=== PATIENT | female | born 1950 | race African-American/Black ===

== ENCOUNTER 2017-10-11 22:23 | Observation (INO) | payer OTHER ==
[~2017-10-11] VITALS: Ht 154.9 cm; Wt 82.0 kg
[2017-10-11 22:31] VITALS: BP 245/107; PULSE 102; RESP 18; TEMP 98.9; O2SAT 96
[2017-10-11 23:27] LABS: AUTOMATED NEUTROPHIL # 2.7 TH/MM3 (1.8-7.7); BASOPHIL # 0.1 TH/MM3 (0-0.2); BASOPHIL % 0.9 % (0.0-2.0); EOSINOPHIL # 0.1 TH/MM3 (0-0.4); EOSINOPHIL % 1.9 % (0.0-4.0); HEMATOCRIT 37.8 % (35.0-46.0); HEMOGLOBIN 12.6 GM/DL (11.6-15.3); LYMPH % 43.3 % (9.0-44.0); LYMPHOCYTE # 2.7 TH/MM3 (1.0-4.8); MEAN CELL VOLUME 93.1 FL (80.0-100.0); MEAN CORPUSCULAR HGB CONC 33.3 % (32.0-36.0); MONO % 9.1 % (0.0-8.0); MONOCYTE # 0.6 TH/MM3 (0-0.9); NEUT % 44.8 % (16.0-70.0); PLATELET COUNT 285 TH/MM3 (150-450); RED BLOOD COUNT 4.06 MIL/MM3 (4.00-5.30); WHITE BLOOD COUNT 6.1 TH/MM3 (4.0-11.0)
--- NOTE | 2017-10-11 23:28 | PD ---
HPI Chief Complaint: Chest Pain Time Seen by Provider: 23:11 Travel History International Travel<30 days: No Contact w/Intl Traveler<30days: No Traveled to known affect area: No History of Present Illness HPI 67-year-old female with PMH of myasthenia gravis, DM, HTN presents to the ED for evaluation of 5/10 left chest pain, radiating down the arm. Also complains of a accompanying pressure over the central chest, SOB and lightheadedness. Onset approximately 7 PM after dinner tonight. She denies nausea, vomiting, cough, abdominal pain, changes in bowel habits, dysuria. She states that she recently had changes to her metoprolol secondary to reduction of normal hypertension. She never had a cardiac workup. She has never smoked. She endorses family history of NV in a brother and an uncle. She is visiting from [place]. PFSH Past Medical History High Cholesterol: Yes Diabetes: Yes Patient Takes Glucophage: Yes (10/11/2017 2100) Diminished Hearing: No Hypertension: Yes Medical other: Yes (mythis gravis) Tetanus Vaccination: Unknown Influenza Vaccination: No Past Surgical History Eye Surgery: Yes (catract sx b/l) Hysterectomy: Yes (partial) Other Surgery: Yes (thymectomy) Social History Alcohol Use: No Tobacco Use: No Substance Use: No Allergies-Medications (Allergen,Severity, Reaction): Coded Allergies: latex (Verified Allergy, Severe, 10/11/17) hives levofloxacin (Verified Allergy, Severe, 10/11/17) syncope Reported Meds & Prescriptions Reported Meds & Active Scripts Active Metoprolol Succinate ER 24 HR (Metoprolol Succinate) 100 Mg Tab 100 Mg PO DAILY Reported Metformin (Metformin HCl) 500 Mg Tab 500 Mg PO DAILY With a meal Metoprolol Tartrate 50 Mg Tab 50 Mg PO BID Hydralazine (Hydralazine HCl) 100 Mg Tab 25 Mg PO Q6HR Take with meals Losartan-Hydrochlorothiazide 100-25 Mg Tab 1 Tab PO DAILY Imuran (Azathioprine) 50 Mg Tab 50 Mg PO BID Hazardous agent: use appropriate precautions for handling and disposal. Pyridostigmine ER (Pyridostigmine [place]) 180 Mg Tab 120 Mg PO TID Review of Systems Except as stated in HPI: all other systems reviewed are Neg Physical Exam Narrative GENERAL: Well-nourished, well-developed pleasant -Bangladeshi female in no acute distress. SKIN: Focused skin assessment warm/dry. HEAD: Normocephalic. EYES: No scleral icterus. No injection or drainage. NECK: Supple, trachea midline. No JVD or lymphadenopathy. CARDIOVASCULAR: Regular rate and rhythm without gallops, or rubs. Holosystolic murmur noted. RESPIRATORY: Breath sounds clear and equal bilaterally. No accessory muscle use. GASTROINTESTINAL: Abdomen soft, non-tender, nondistended. MUSCULOSKELETAL: No cyanosis, or edema. BACK: Nontender without obvious deformity. No CVA tenderness. Data Data Last Documented VS Vital Signs Date Time Temp Pulse Resp B/P (MAP) Pulse Ox O2 Delivery O2 Flow Rate FiO2 10/12/17 01:30 82 16 181/79 (113) 97 Room Air 10/11/17 22:31 98.9 Orders Orders Electrocardiogram (10/11/17 22:42) Complete Blood Count With Diff (10/11/17 22:42) Basic Metabolic Panel (Bmp) (10/11/17 22:42) Ckmb (Isoenzyme) Profile (10/11/17 22:42) Troponin I (10/11/17 22:42) Chest, Single Ap (10/11/17 22:42) Iv Access Insert/Monitor (10/11/17 22:42) Ecg Monitoring (10/11/17 22:42) Oxygen Administration (10/11/17 22:42) Oximetry (10/11/17 22:42) Ct Brain W/O Iv Contrast(Rout) (10/11/17 ) Aspirin (Aspirin) (10/11/17 23:30) Hydralazine Inj (Apresoline Inj) (10/11/17 23:45) Nitroglycerin 2% Oint (Nitroglycerin 2% (10/12/17 00:00) Labetalol Inj (Trandate Inj) (10/12/17 00:30) CKMB (10/12/17 00:27) CKMB% (10/12/17 00:27) Admit Order (Ed Use Only) (10/12/17 02:17) Labs Laboratory Tests Test 10/11/17 23:19 10/12/17 00:27 White Blood Count 6.1 TH/MM3 Red Blood Count 4.06 MIL/MM3 Hemoglobin 12.6 GM/DL Hematocrit 37.8 % Mean Corpuscular Volume 93.1 FL Mean Corpuscular Hemoglobin 31.0 PG Mean Corpuscular Hemoglobin Concent 33.3 % Red Cell Distribution Width 16.0 % Platelet Count 285 TH/MM3 Mean Platelet Volume 9.0 FL Neutrophils (%) (Auto) 44.8 % Lymphocytes (%) (Auto) 43.3 % Monocytes (%) (Auto) 9.1 % Eosinophils (%) (Auto) 1.9 % Basophils (%) (Auto) 0.9 % Neutrophils # (Auto) 2.7 TH/MM3 Lymphocytes # (Auto) 2.7 TH/MM3 Monocytes # (Auto) 0.6 TH/MM3 Eosinophils # (Auto) 0.1 TH/MM3 Basophils # (Auto) 0.1 TH/MM3 CBC Comment AUTO DIFF Differential Comment AUTO DIFF CONFIRMED Platelet Estimate NORMAL Platelet Morphology Comment NORMAL Blood Urea Nitrogen 30 MG/DL Creatinine 1.42 MG/DL Random Glucose 227 MG/DL Calcium Level 9.6 MG/DL Sodium Level 137 MEQ/L Potassium Level 3.6 MEQ/L Chloride Level 102 MEQ/L Carbon Dioxide Level 27.2 MEQ/L Anion Gap 8 MEQ/L Estimat Glomerular Filtration Rate 45 ML/MIN Total Creatine Kinase 125 U/L Creatine Kinase MB 0.8 NG/ML Troponin I LESS THAN 0.02 NG/ML MDM Medical Decision Making Medical Screen Exam Complete: Yes Emergency Medical Condition: Yes Differential Diagnosis Chest pain versus angina versus ACS versus hypertensive urgency versus other Narrative Course 67-year-old female with PMH of myasthenia gravis, DM, HTN presents to the ED for evaluation of 5/10 left chest pain, radiating down the arm. Also complains of a accompanying pressure over the central chest, SOB and lightheadedness. Onset approximately 7 PM after dinner tonight. She states that she recently had changes to her metoprolol dose but takes multiple BP meds. She never had a cardiac workup. She has never smoked. She endorses family history of NV in a brother and an uncle. She is visiting from [place]. Heart rate 102, BP 245/107 on presentation. On exam this is a pleasant obese -Bangl[place]hi female in no acute distress. There is a holosystolic murmur heard but the exam is otherwise unremarkable. IV was established. Patient was administered 10 mg hydralazine IV. Cardiac workup initiated. I discussed possible admission to the [facility], even if the workup is completely negative today with the patient who is agreeable. The patient is signed out to Dr. Amezquita at end of shift. Please see her note for disposition. Scripts Metoprolol Succinate ER 24 HR (Metoprolol Succinate ER 24 HR) 100 Mg Tab 100 MG PO DAILY for Blood Pressure Management, #30 TAB 0 Refills Prov: Ezekiel Schuster 10/12/17 Kimmie Nance Oct 11, 2017 23:28
[2017-10-11 23:30] VITALS: BP 245/110; PULSE 90; RESP 16; O2SAT 100
[2017-10-11] MEDS ORDERED: ASPIRIN 325 MG TAB PO ONE (23:30)
[2017-10-11] MEDS ORDERED: hydrALAZINE HCL 20 MG/ML VIAL IV PUSH ONE (23:45)
--- NOTE | 2017-10-11 23:47 | PD ---
Data Data Last Documented VS Vital Signs Date Time Temp Pulse Resp B/P (MAP) Pulse Ox O2 Delivery O2 Flow Rate FiO2 10/12/17 00:40 80 16 192/89 (123) 98 Room Air 10/11/17 22:31 98.9 Orders Orders Electrocardiogram (10/11/17 22:42) Complete Blood Count With Diff (10/11/17 22:42) Basic Metabolic Panel (Bmp) (10/11/17 22:42) Ckmb (Isoenzyme) Profile (10/11/17 22:42) Troponin I (10/11/17 22:42) Chest, Single Ap (10/11/17 22:42) Iv Access Insert/Monitor (10/11/17 22:42) Ecg Monitoring (10/11/17 22:42) Oxygen Administration (10/11/17 22:42) Oximetry (10/11/17 22:42) Ct Brain W/O Iv Contrast(Rout) (10/11/17 ) Aspirin (Aspirin) (10/11/17 23:30) Hydralazine Inj (Apresoline Inj) (10/11/17 23:45) Nitroglycerin 2% Oint (Nitroglycerin 2% (10/12/17 00:00) Labetalol Inj (Trandate Inj) (10/12/17 00:30) CKMB (10/12/17 00:27) CKMB% (10/12/17 00:27) Admit Order (Ed Use Only) (10/12/17 02:17) Activity Bed Rest With Brp (10/12/17 02:18) Vital Signs (Adult) Q4H (10/12/17 02:18) Cardiac Rhythm .As Directed (10/12/17 02:18) Notify Dr: Other .PRN (10/12/17 02:18) Notify Dr. Parameters (10/12/17 02:18) Resp Oxygen Nasal Cannula (10/12/17 ) Diet Npo (10/12/17 Breakfast) Ckmb (Isoenzyme) Profile (10/12/17 03:30) Ckmb (Isoenzyme) Profile (10/12/17 06:30) Troponin I (10/12/17 03:30) Troponin I (10/12/17 06:30) Electrocardiogram (10/12/17 03:30) Electrocardiogram (10/12/17 06:30) ^ Obtain (10/12/17 02:18) Sodium Chloride 0.9% Flush (Ns Flush) (10/12/17 02:30) Sodium Chloride 0.9% Flush (Ns Flush) (10/12/17 09:00) Acetaminophen (Tylenol) (10/12/17 02:30) Ondansetron Inj (Zofran Inj) (10/12/17 02:30) Lisinopril (Prinivil) (10/12/17 09:00) Nitroglycerin 2% Oint (Nitroglycerin 2% (10/12/17 06:00) Aspirin (Aspirin) (10/12/17 09:00) [employer] Operator / Telemetry MANAV.Q8H (10/12/17 02:18) Labs Laboratory Tests Test 10/11/17 23:19 10/12/17 00:27 White Blood Count 6.1 TH/MM3 Red Blood Count 4.06 MIL/MM3 Hemoglobin 12.6 GM/DL Hematocrit 37.8 % Mean Corpuscular Volume 93.1 FL Mean Corpuscular Hemoglobin 31.0 PG Mean Corpuscular Hemoglobin Concent 33.3 % Red Cell Distribution Width 16.0 % Platelet Count 285 TH/MM3 Mean Platelet Volume 9.0 FL Neutrophils (%) (Auto) 44.8 % Lymphocytes (%) (Auto) 43.3 % Monocytes (%) (Auto) 9.1 % Eosinophils (%) (Auto) 1.9 % Basophils (%) (Auto) 0.9 % Neutrophils # (Auto) 2.7 TH/MM3 Lymphocytes # (Auto) 2.7 TH/MM3 Monocytes # (Auto) 0.6 TH/MM3 Eosinophils # (Auto) 0.1 TH/MM3 Basophils # (Auto) 0.1 TH/MM3 CBC Comment AUTO DIFF Differential Comment AUTO DIFF CONFIRMED Platelet Estimate NORMAL Platelet Morphology Comment NORMAL Blood Urea Nitrogen 30 MG/DL Creatinine 1.42 MG/DL Random Glucose 227 MG/DL Calcium Level 9.6 MG/DL Sodium Level 137 MEQ/L Potassium Level 3.6 MEQ/L Chloride Level 102 MEQ/L Carbon Dioxide Level 27.2 MEQ/L Anion Gap 8 MEQ/L Estimat Glomerular Filtration Rate 45 ML/MIN Total Creatine Kinase 125 U/L Creatine Kinase MB 0.8 NG/ML Troponin I LESS THAN 0.02 NG/ML [facility] Medical Record Reviewed: Yes Supervised Visit with YOVANY: No Interpretation(s) Last Impressions Chest X-Ray 10/11/17 2242 Signed Impressions: Service Date/Time: Wednesday, October 11, 2017 23:55 - CONCLUSION: No acute cardiopulmonary abnormality is identified. Keith Reynolds MD Head CT 10/11/17 0000 Signed Impressions: Service Date/Time: Wednesday, October 11, 2017 23:51 - CONCLUSION: No acute intracranial abnormality is identified. Keith Reynolds MD Narrative Course During the course of the patient's emergency department visit, the patient's history, examination, and differential diagnosis were reviewed with the patient. The patient was placed on a cardiac technologist with oximetry and frequent blood pressure monitoring. The patient had IV access obtained and blood work sent for analysis. The patient's case was checked out to me by Nadya. Please see her complete history and physical. The patient's case was checked out to me at the conclusion of her shift. The patient presented with an episode of chest pain, dizziness. The patient has no prior history of cardiac disease. The patient does have a history of difficult to control high blood pressure. The patient arrives hypertensive. The patient had an EKG done on arrival that shows a sinus rhythm with a sinus arrhythmia heart rate of 89, QRS duration is 85 ms, QTC 416 ms. Without any acute ST segment elevation. T waves are inverted in V6. The patient was initially provided hydralazine 10 mg IV, aspirin 325 mg p.o. 1 the patient continued to have hypertension. The patient was chest pain-free. The patient was given nitroglycerin 1 inch the chest wall. The patient was given labetalol 10 mg IV. The patient's laboratory studies were reviewed and remarkable for a CBC that is unremarkable, BMP is remarkable for a BUN of 30, creatinine 1.42, glucose 227 with normal initial set of cardiac enzymes. Radiology studies were reviewed and remarkable for chest x-ray that showed no evidence of acute cardiopulmonary disease. No widened mediastinum. The patient will be admitted to the chest pain center for a rule out serial cardiac enzyme protocol followed by stress testing. The patient's results were discussed with the patient, including the plan of care. I explained that further testing and/ or monitoring is indicated based on the patient's history, examination, and/ or laboratory findings. Therefore, I recommended admission for additional evaluation. The patient expressed understanding and was agreeable with this plan. The patient was admitted to the hospital in stable condition and sent to a bed under the care of the chest pain center. Diagnosis Primary Impression: Chest pain, rule out acute myocardial infarction Additional Impression: Hypertension Qualified Codes: I10 - Essential (primary) hypertension Admitting Information Admitting Physician Requests: Observation Sharda Amezquita MD Oct 11, 2017 23:47
[2017-10-12] VITALS (18 sets, daily range): BP systolic 150–209; BP diastolic 64–95; PULSE 80–113; RESP 16–18; TEMP 96.7–98.4; O2SAT 94–98
[2017-10-12] MEDS ORDERED: NITROGLYCERIN 2% OINT 1 GM PACKET TOPICAL ONE
--- NOTE | 2017-10-12 00:08 | RADRPT ---
EXAM DATE/TIME: 10/11/2017 23:51 [facility] COMPARISON: No previous studies available for comparison. INDICATIONS : Headaches with high blood pressure and chest pain. RADIATION DOSE: 39.13 CTDIvol (mGy) MEDICAL HISTORY : Hypertension. Diabetes mellitus type 2. SURGICAL HISTORY : Hysterectomy. ENCOUNTER: Initial ACUITY: 1 day PAIN SCALE: 5/10 LOCATION: cranial TECHNIQUE: Multiple contiguous axial images were obtained of the head. Using automated exposure control and adj ustment of the mA and/or kV according to patient size, radiation dose was kept as low as reasonably a chievable to obtain optimal diagnostic quality images. DICOM format image data is available electro nically for review and comparison. FINDINGS: CEREBRUM: There is mild generalized atrophy. Ventricles are normal. No evidence of midline shift, mass lesion, hemorrhage or acute infarction. No extra-axial fluid collections are seen. POSTERIOR FOSSA: The cerebellum and brainstem demonstrate no acute finding. There is severe atherosclerotic calcificat ion of the distal left vertebral artery. The 4th ventricle is midline. The cerebellopontine angle i s unremarkable. EXTRACRANIAL: Visualized sinuses are clear. SKULL: The calvaria is intact. No evidence of skull fracture. CONCLUSION: No acute intracranial abnormality is identified. Keith Reynolds MD on October 12, 2017 at 0:04 Board Certified Radiologist. This report was verified electronically.
--- NOTE | 2017-10-12 00:11 | RADRPT ---
EXAM DATE/TIME: 10/11/2017 23:55 [facility] COMPARISON: No previous studies available for comparison. INDICATIONS : Chest pain. MEDICAL HISTORY : None. SURGICAL HISTORY : CABG. ENCOUNTER: Initial ACUITY: 1 day PAIN SCORE: 08/18 LOCATION: Bilateral chest FINDINGS: Portable AP view of the chest demonstrates a normal-sized cardiac silhouette in this patient post med wendy sternotomy and CABG. Clips overlie the mediastinum. There is calcification of the mitral annulus. EKG lines overlie the patient. No pleural effusion, airspace consolidation, or pneumothorax is ident ified. The bones and soft tissues demonstrate no acute finding. CONCLUSION: No acute cardiopulmonary abnormality is identified. Keith Reynolds MD on October 12, 2017 at 0:08 Board Certified Radiologist. This report was verified electronically.
[2017-10-12] MEDS ORDERED: LOSA100T2 PO (00:26)
[2017-10-12] MEDS ORDERED: METO50TA PO (00:26)
[2017-10-12] MEDS ORDERED: METF500T PO (00:26)
[2017-10-12] MEDS ORDERED: IMUR50TA5 PO (00:26)
[2017-10-12] MEDS ORDERED: METO100T PO (00:26)
[2017-10-12] MEDS ORDERED: PYRI1TAB8 PO (00:26)
[2017-10-12] MEDS ORDERED: HYDR-3801 PO (00:26)
[2017-10-12] MEDS ORDERED: LABETALOL HCL 100 MG/20 ML VIAL IV PUSH ONE (00:30)
[2017-10-12 01:43] LABS: BICARBONATE 27.2 MEQ/L (21.0-32.0); BLOOD UREA NITROGEN 30 MG/DL (7-18); CALCIUM 9.6 MG/DL (8.5-10.1); CHLORIDE 102 MEQ/L (98-107); CREATININE 1.42 MG/DL (0.50-1.00); GLOMERULAR FILTRATION RATE 45 ML/MIN (>89); GLUCOSE,RANDOM 227 MG/DL (74-106); SODIUM (NA) 137 MEQ/L (136-145)
[2017-10-12 01:46] LABS: TROPONIN I LESS THAN 0.02 NG/ML (0.02-0.05)
[2017-10-12] MEDS ORDERED: ONDANSETRON HCL 4 MG/2 ML VIAL IV PUSH PRN (02:30)
[2017-10-12] MEDS ORDERED: ACETAMINOPHEN 500 MG CPLT PO PRN (02:30)
[2017-10-12] MEDS ORDERED: SODIUM CHLORIDE 0.9% FLUSH 10 ML FLUSH IV FLUSH PRN (02:30)
[2017-10-12 04:16] LABS: TROPONIN I 0.02 NG/ML (0.02-0.05)
[2017-10-12] MEDS: NITROGLYCERIN 2% OINT 1 GM PACKET TOP SCH ×3 (05:58→17:12)
[2017-10-12 07:44] LABS: TROPONIN I LESS THAN 0.02 NG/ML (0.02-0.05)
[2017-10-12] MEDS ORDERED: LISINOPRIL 10 MG TAB PO SCH (09:00)
[2017-10-12] MEDS ORDERED: ASPIRIN 325 MG TAB PO SCH (09:00)
[2017-10-12] MEDS ORDERED: METO1TAB43 PO (09:07)
[2017-10-12] MEDS: cloNIDine HCL 0.1 MG TAB PO PRN ×4 (09:30→20:33)
[2017-10-12] MEDS ORDERED: HYDROCHLOROTHIAZIDE 25 MG TAB PO SCH (10:00)
[2017-10-12] MEDS ORDERED: LOSARTAN 50 MG TAB PO SCH (10:00)
[2017-10-12] MEDS: SODIUM CHLORIDE 0.9% FLUSH 10 ML FLUSH IV FLUSH SCH ×2 (10:08→20:25)
[2017-10-12] MEDS: hydrALAZINE HCL 25 MG TAB PO SCH ×2 (11:11→17:12)
[2017-10-12] MEDS ORDERED: DEXTROSE 50% IN WATER 50 ML VIAL(D50) IV PUSH PRN (11:45)
[2017-10-12] MEDS ORDERED: GLUCAGON 1 MG/ML VIAL OTHER PRN (11:45)
[2017-10-12] MEDS: INSULIN ASPART SUPPLEMENTAL SCALE SQ SCH ×3 (12:00→22:05)
[2017-10-12] MEDS ORDERED: hydrALAZINE HCL 25 MG TAB PO SCH (12:00)
--- NOTE | 2017-10-12 12:30 | HHI.HP ---
HPI Primary Care Physician Unknown Chief Complaint Chest pain History of Present Illness This is a 67-year-old female that presents to ED with complaint of chest discomfort she has history of myasthenia gravis, diabetes, hypertension. Complains of a central and left-sided chest pressure that can radiate down her left arm. Began last evening little after dinner. Denies shortness breath, nausea, or diaphoresis. Cannot recall any recent cardiac workup. Found nothing to worsen or improve her symptoms when she had them. Also states her blood pressure was high when she came in. States her medications were changed somewhat recently. She was taken off of her 50 mg a.m. dose of metoprolol, continues metoprolol succinate 100 mg in evening, losartan, and hydralazine 25 mg 3 times a day. Currently no chest discomfort. Review of Systems General: Patient denies fevers, chills, and recent travel HEENT: Patient denies headache, sore throat, difficulty swallowing. Cardiovascular: Has the chest discomfort as mentioned above. Denies sensation of heart beating rapidly or irregularly. No syncope. Denies diaphoresis. Respiratory: Denies shortness of breath or inspirational chest discomfort. Denies coughing wheezing or hemoptysis. GI: Patient denies nausea, vomiting, diarrhea, abdominal pain, bloody stools. Musculoskeletal: Patient denies joint pain or edema. Denies calf pain or edema. Neurovascular: Patient denies numbness, tingling, weakness in extremities. Denies headache. Endocrine: Denies polyuria and polydipsia. Hematologic: Denies easy bruising. Skin: Denies rash or itching. Past Family Social History Allergies: Coded Allergies: latex (Verified Allergy, Severe, 10/11/17) hives levofloxacin (Verified Allergy, Severe, 10/11/17) syncope Past Medical History Myasthenia gravis, hypertension, diabetes. Denies hyperlipidemia and known CAD. Non-smoker. Past Surgical History Thymectomy, partial hysterectomy. Cataracts. Reported Medications Reported Meds & Active Scripts Active Metoprolol Succinate ER 24 HR (Metoprolol Succinate) 100 Mg Tab 100 Mg PO DAILY Reported Metformin (Metformin HCl) 500 Mg Tab 500 Mg PO DAILY With a meal Metoprolol Tartrate 50 Mg Tab 50 Mg PO BID Hydralazine (Hydralazine HCl) 100 Mg Tab 25 Mg PO Q6HR Take with meals Losartan-Hydrochlorothiazide 100-25 Mg Tab 1 Tab PO DAILY Imuran (Azathioprine) 50 Mg Tab 50 Mg PO BID Hazardous agent: use appropriate precautions for handling and disposal. Pyridostigmine ER (Pyridostigmine [place]) 180 Mg Tab 120 Mg PO TID Active Ordered Medications Current Medications Medications (Trade) Dose Ordered Sig/Leigh Route Start Time Stop Time Status Last Admin (NS Flush) 2 ml UNSCH PRN IV FLUSH 10/12/17 02:30 (NS Flush) 2 ml BID IV FLUSH 10/12/17 09:00 10/12/17 10:08 (Tylenol) 500 mg Q4H PRN PO 10/12/17 02:30 (Zofran Inj) 4 mg Q6H PRN IV PUSH 10/12/17 02:30 (Nitroglycerin 2% Oint) 1 inch Q6HR TOP 10/12/17 06:00 10/12/17 05:58 (Aspirin) 325 mg DAILY PO 10/12/17 09:00 10/12/17 10:00 (Catapres) 0.1 mg Q4H PRN PO 10/12/17 08:15 (Cozaar) 100 mg DAILY PO 10/12/17 10:00 10/12/17 10:00 (Hydrodiuril) 25 mg DAILY PO 10/12/17 10:00 10/12/17 10:00 (Apresoline) 25 mg Q6HR PO 10/12/17 12:00 10/12/17 11:11 (D50w (Vial) Inj) 50 ml UNSCH PRN IV PUSH 10/12/17 11:45 (Glucagon Inj) 1 mg UNSCH PRN OTHER 10/12/17 11:45 (NovoLOG SUPPLEMENTAL SCALE) 1 ACHS SLIDING SCALE SQ 10/12/17 12:00 Family History There is family history of CAD with her brother having an CT. Social History Non-smoker. Denies alcohol or illicit drug use. Physical Exam Vital Signs Vital Signs Date Time Temp Pulse Resp B/P (MAP) Pulse Ox O2 Delivery O2 Flow Rate FiO2 10/12/17 10:49 88 188/87 (120) 10/12/17 10:08 88 16 188/88 (121) 97 Room Air 10/12/17 08:56 105 16 208/91 (130) 98 Room Air 10/12/17 07:54 82 16 172/80 (110) 98 Room Air 10/12/17 07:53 82 16 172/80 (110) 98 Room Air 10/12/17 04:33 91 16 181/91 (121) 94 Room Air 10/12/17 02:31 82 16 169/76 (107) 96 Room Air 10/12/17 01:30 82 16 181/79 (113) 97 Room Air 10/12/17 00:40 80 16 192/89 (123) 98 Room Air 10/11/17 23:30 90 16 245/110 (155) 100 Room Air 10/11/17 22:31 98.9 102 18 245/107 (153) 96 Physical Exam GENERAL: This is a well-nourished, well-developed patient, in no apparent distress. Patient speaks in clear complete sentences. Patient is pleasant. HEENT: Head is atraumatic and normocephalic. Neck is supple without lymphadenopathy and trachea is midline. No JVD or carotid bruits. CARDIOVASCULAR: Grade 2 systolic murmur left sternal border. Regular rate and rhythm without gallops or rubs. RESPIRATORY: Clear to auscultation. Breath sounds equal bilaterally. No wheezes , rales, or rhonchi. Chest wall is nontender. No use of accessory muscles. GASTROINTESTINAL: Abdomen is nontender, nondistended. Abdomen soft. No obvious pulsatile mass or bruit. No CVA tenderness. Strong femoral pulses bilaterally. Normal bowel sounds in all quadrants. MUSCULOSKELETAL: Patient is moving upper and lower extremities freely. No calf tenderness or edema, no Homans sign. Strong pulses in upper and lower extremities. NEUROLOGICAL: Patient is alert and oriented. Cranial nerves 2-12 are grossly intact. No focal deficits and speech is clear. SKIN: No rash and turgor is normal. Laboratory Laboratory Tests Test 10/11/17 23:19 10/12/17 00:27 10/12/17 03:29 10/12/17 06:20 White Blood Count 6.1 Red Blood Count 4.06 Hemoglobin 12.6 Hematocrit 37.8 Mean Corpuscular Volume 93.1 Mean Corpuscular Hemoglobin 31.0 Mean Corpuscular Hemoglobin Concent 33.3 Red Cell Distribution Width 16.0 Platelet Count 285 Mean Platelet Volume 9.0 Neutrophils (%) (Auto) 44.8 Lymphocytes (%) (Auto) 43.3 Monocytes (%) (Auto) 9.1 Eosinophils (%) (Auto) 1.9 Basophils (%) (Auto) 0.9 Neutrophils # (Auto) 2.7 Lymphocytes # (Auto) 2.7 Monocytes # (Auto) 0.6 Eosinophils # (Auto) 0.1 Basophils # (Auto) 0.1 CBC Comment AUTO DIFF Differential Comment AUTO DIFF CONFIRMED Platelet Estimate NORMAL Platelet Morphology Comment NORMAL Blood Urea Nitrogen 30 Creatinine 1.42 Random Glucose 227 Calcium Level 9.6 Sodium Level 137 Potassium Level 3.6 Chloride Level 102 Carbon Dioxide Level 27.2 Anion Gap 8 Estimat Glomerular Filtration Rate 45 Total Creatine Kinase 125 120 114 Creatine Kinase MB 0.8 0.8 0.9 Troponin I LESS THAN 0.02 0.02 LESS THAN 0.02 Result Diagram: 10/11/17 2319 10/12/17 0027 Imaging Last 48 hours Impressions Chest X-Ray 10/11/17 2242 Signed Impressions: Service Date/Time: Wednesday, October 11, 2017 23:55 - CONCLUSION: No acute cardiopulmonary abnormality is identified. Keith Reynolds MD Head CT 10/11/17 0000 Signed Impressions: Service Date/Time: Wednesday, October 11, 2017 23:51 - CONCLUSION: No acute intracranial abnormality is identified. Keith Reynolds MD Course EKGs are sinus rhythm without significant ST segment depressions or elevations. Caprini VTE Risk Assessment Caprini VTE Risk Assessment: Mod/High Risk (score >= 2) Caprini Risk Assessment Model Point Value = 1 Point Value = 2 Point Value = 3 Point Value = 5 Age 41-60 Minor surgery BMI > 25 kg/m2 Swollen legs Varicose veins or History of unexplained or recurrent spontaneous Oral contraceptives or hormone replacement Sepsis (< 1 month) Serious lung disease, including pneumonia (< 1 month) Abnormal pulmonary function Acute myocardial infarction Congestive heart failure (< 1 month) History of inflammatory bowel disease Medical patient at bed rest Age 61-74 Arthroscopic surgery Major open surgery (> 45 min) Laparoscopic surgery (> 45 min) Malignancy Confined to bed (> 72 hours) Immobilizing plaster cast Central venous access Age >= 75 History of VTE Family history of VTE Factor V Leiden Prothrombin [id number] Lupus anticoagulant Anticardiolipin antibodies Elevated serum homocysteine Heparin-induced thrombocytopenia Other congenital or acquired thrombophilia Stroke (< 1 month) Elective arthroplasty Hip, pelvis, or leg fracture Acute spinal cord injury (< 1 month) Prophylaxis Regimen Total Risk Factor Score Risk Level Prophylaxis Regimen 0-1 Low Early ambulation 2 Moderate Order ONE of the following: *Sequential Compression Device (SCD) *Heparin 5000 units SQ BID 3-4 Higher Order ONE of the following medications: *Heparin 5000 units SQ TID *Enoxaparin/Lovenox 40 mg SQ daily (WT < 150 kg, CrCl > 30 mL/min) *Enoxaparin/Lovenox 30 mg SQ daily (WT < 150 kg, CrCl > 10-29 mL/min) *Enoxaparin/Lovenox 30 mg SQ BID (WT < 150 kg, CrCl > 30 mL/min) AND/OR *Sequential Compression Device (SCD) 5 or more Highest Order ONE of the following medications: *Heparin 5000 units SQ TID (Preferred with Epidurals) *Enoxaparin/Lovenox 40 mg SQ daily (WT < 150 kg, CrCl > 30 mL/min) *Enoxaparin/Lovenox 30 mg SQ daily (WT < 150 kg, CrCl > 10-29 mL/min) *Enoxaparin/Lovenox 30 mg SQ BID (WT < 150 kg, CrCl > 30 mL/min) AND *Sequential Compression Device (SCD) Assessment and Plan Assessment and Plan * Chest pain: Patient has had serial cardiac enzymes and EKGs for ruling out purposes. She has been seen by Dr. Dickerson of cardiology in the chest pain center and will undergo a Lexiscan. She will be discharged home for stress test is nonischemic with instructions to follow-up with PCP. Return to ED for interval issues. * Hypertension: We will increase her hydralazine to 25 mg every 6 hours. Continue her metoprolol succinate and losartan/HCT. * Diabetes: Patient will have sliding scale insulin coverage while in chest pain center. Follow diabetic diet. Resume medication at discharge. She should discuss being on a statin medication with history of diabetes. Patient is stable at this time. She is agreeable to this plan. Ezekiel Schuster Oct 12, 2017 12:30
[2017-10-12] MEDS ORDERED: REGADENOSON INJ 0.4 MG/5 ML SYR ONE (14:21)
--- NOTE | 2017-10-12 15:35 | RADRPT ---
EXAM DATE/TIME: 10/12/2017 14:04 [facility] COMPARISON: No previous studies available for comparison. INDICATIONS : Left sided chest pain. Angina. DOSE: 26.1 mCi Tc99m Myoview at stress. 8.1 mCi Tc99m Myoview at rest. 0.4 mg Lexiscan STRESS SYMPTOMS: Flushed. EJECTION FRACTION: 56% MEDICAL HISTORY : Diabetes mellitus type 2. Hypertension. SURGICAL HISTORY : Hysterectomy. Thymectomy. ENCOUNTER: Initial ACUITY: 1 day PAIN SCALE: 4/10 LOCATION: Left chest TECHNIQUE: The patient underwent pharmacologic stress with infusion of prescribed dose. Continuous ECG tracing was monitored during stress. Gated SPECT imaging was performed after stress and conventional SPECT i maging was performed at rest. The examination was performed on a SPECT/CT scanner, both attenuation and non-corrected datasets were reviewed. FINDINGS: DISTRIBUTION: The maximum perfused segment at stress is in the septal wall. PERFUSION STUDY: There is 10-20% redistribution involving the anterior wall between the stress and rest images. No are a greater than 20% the appreciated. GATED STUDY: There is intact wall motion and thickening without hypokinetic or dyskinetic segments. CONCLUSION: No significant reversible defects observed to suggest acute ischemia. RISK CATEGORY: low Oswaldo Bonner Jr., MD on October 12, 2017 at 15:28 Board Certified Radiologist. This report was verified electronically.
--- NOTE | 2017-10-12 15:53 | TR ---
Date Performed: 10/12/2017 Time Performed: 14:32:30 DOCTOR: Keisha Dickerson DRUG LIST: CLINICAL HISTORY: REASON FOR TEST: REASON FOR ENDING: OBSERVATION: CONCLUSION: Lexiscan stress test was performed under standard four minute protocol. Radionuclid e was injected one minute prior to ending the test. No electrocardiographic abormalities were present to suggest ischemia. Nuclear imaging and interpretation are pending. COMMENTS:
--- NOTE | 2017-10-12 16:00 | EKG ---
Date Performed: 10/12/2017 Time Performed: 06:17:21 PTAGE: 67 years EKG: Sinus rhythm POSSIBLE LEFT ATRIAL ENLARGEMENT POSSIBLE LEFT VENTRICULAR HYPERTROPHY MODERATE T-WAVE ABNORMALITY, CONSIDER LATERAL ISCHEMIA ABNORMAL ECG Since PREVIOUS TRACING , no significant change noted PREVIOUS TRACIN10/12/2017 03.23 DOCTOR: Keisha Dickerson Interpretating Date/Time 10/12/2017 15:59:20
--- NOTE | 2017-10-12 16:01 | EKG ---
Date Performed: 10/12/2017 Time Performed: 03:23:24 PTAGE: 67 years EKG: Sinus rhythm POSSIBLE LEFT ATRIAL ENLARGEMENT LEFT VENTRICULAR HYPERTROPHY AND ST-T CHANGE ABNORMAL ECG Since PREVIOUS TRACING , no significant change noted PREVIOUS TRACIN10/11/2017 23.09 DOCTOR: Keisha Dickerson Interpretating Date/Time 10/12/2017 16:01:01
--- NOTE | 2017-10-12 16:02 | EKG ---
Date Performed: 10/11/2017 Time Performed: 23:09:10 PTAGE: 67 years EKG: Sinus rhythm WITH SINUS ARRHYTHMIA POSSIBLE LEFT ATRIAL ENLARGEMENT LEFT VENTRICULAR HYPERTROPHY AND ST-T CHANGE ABNORMAL ECG NO PREVIOUS TRACING DOCTOR: Keisha Dickerson Interpretating Date/Time 10/12/2017 16:01:37
[2017-10-12] MEDS ORDERED: amLODIPine BESYLATE 5 MG TAB PO SCH (16:15)
[2017-10-12] MEDS ORDERED: cloNIDine HCL 0.2 MG TAB PO ONE (16:15)
[2017-10-12] MEDS ORDERED: CLON.2 PO (16:18)
--- NOTE | 2017-10-12 16:19 | HHI.DCPOC ---
Discharge Care Plan Diagnosis: (1) Chest pain (2) DM (diabetes mellitus) (3) Hypertension Goals to Promote Your Health DISCUSS TAKING CHOLESTEROL MEDICATIONS WHEN YOU FOLLOW UP WITH YOUR PHYSICIAN. * To prevent worsening of your condition and complications * To maintain your health at the optimal level Directions to Meet Your Goals Take your medications as prescribed Follow your dietary instruction Follow activity as directed Keep your appointments as scheduled Take your immunizations and boosters as scheduled If your symptoms worsen call your PCP, if no PCP go to Urgent Care Center or Emergency Room Smoking is Dangerous to Your Health. Avoid second hand smoke Call the 24-hour hour crisis hotline for domestic abuse at Ezekiel Schuster Oct 12, 2017 16:19
[2017-10-12] MEDS ORDERED: TIMO0.5S30 EACH EYE (18:17)
[2017-10-12] MEDS ORDERED: TRAV0.00 EACH EYE (18:18)
[2017-10-12] MEDS ORDERED: ALPH0.1S EACH EYE (18:19)
[2017-10-13 00:17] VITALS: PULSE 100
[2017-10-13 00:38] VITALS: BP 136/74; PULSE 96; RESP 16; TEMP 99; O2SAT 100
[2017-10-13 03:14] VITALS: BP 150/84; PULSE 101; RESP 20; TEMP 98; O2SAT 98
[2017-10-13 04:15] VITALS: PULSE 94
[2017-10-13 05:08] VITALS: O2SAT 98
[2017-10-13] MEDS: hydrALAZINE HCL 25 MG TAB PO SCH ×2 (05:33)
[2017-10-13] MEDS: NITROGLYCERIN 2% OINT 1 GM PACKET TOP SCH ×2 (05:34)
== END 2017-10-13 07:53 | disposition home or self-care (01) ==
LOC: NEPE 22:23 → NEDA 10-12 02:18 → NEDH 10-12 06:17 → NEPGCP 10-12 16:40
PROVIDERS: ADMIT Internal Medicine Cardiovascular Disease; ATTEND Internal Medicine Cardiovascular Disease
DX: R07.89 Other chest pain (principal); R42 Dizziness and giddiness; I11.9 Hypertensive heart disease without heart failure; I20.9 Angina pectoris, unspecified; I49.9 Cardiac arrhythmia, unspecified; R01.1 Cardiac murmur, unspecified; R94.31 Abnormal electrocardiogram [ECG] [EKG]; E11.9 Type 2 diabetes mellitus without complications; E78.00 Pure hypercholesterolemia, unspecified; G70.00 Myasthenia gravis without (acute) exacerbation; E66.9 Obesity, unspecified; Z95.1 Presence of aortocoronary bypass graft; Z79.899 Other long term (current) drug therapy; Z79.84 Long term (current) use of oral hypoglycemic drugs; Z82.49 Family history of ischemic heart disease and other diseases of the circulatory system
CPT/HCPCS: 70450; 71045; 78452; 80048; 82550; 82552; 82948; 84484; 85025; 93005; 93017; 96372; 96374; 96375; 99285; A9502; G0378; J0360; J1815; J2785